=== PATIENT | female | born 1965 | race American Indian/Alaskan Native ===

== ENCOUNTER 2021-05-15 19:04 | Emergency (ER) | payer OTHER ==
[2021-05-15] MEDS ORDERED: ONDANSETRON 4 MG ODT TAB PO ONE (20:05)
[2021-05-15] MEDS ORDERED: ACETAMINOPHEN 500 MG TAB PO ONE (20:06)
[2021-05-15 20:17] LABS: Basophils % (Auto) 0.4 % (0.0-1.8); Eosinophils % (Auto) 0.3 % (0.0-4.3); Lymphocytes # (Auto) 0.4 K/mm3 (1.2-5.4); Lymphocytes % (Auto) 7.7 % (13.4-35.0); Monocytes # (Auto) 0.2 K/mm3 (0.0-0.8); Monocytes % (Auto) 3.3 % (0.0-7.3)
[2021-05-15 20:29] LABS: Bacteria,Urine 1+ /HPF (Negative); Bilirubin,Urine NEG (Negative); Blood,Urine NEG (Negative); Color,Urine Yellow (Yellow); Mucus,Urine 2+ /HPF; Urobilinogen,Urine < 2.0 mg/dL (<2.0)
[2021-05-15 20:39] LABS: Alanine Aminotransferase 18 units/L (7-56); BUN/Creatinine Ratio 12; Blood Urea Nitrogen 11 mg/dL (7-17); Calcium 10.1 mg/dL (8.4-10.2); Hemolysis Index 7
[2021-05-15 20:52] LABS: Hematocrit 39.6 % (30.3-42.9); Mean Corpuscular HGB Conc 33 % (30-34); Mean Corpuscular Volume 85 fl (79-97); Platelet Count 306 K/mm3 (140-440); Red Blood Count 4.63 M/mm3 (3.65-5.03); Red Cell Distribution Width 15.6 % (13.2-15.2)
[2021-05-15] MEDS ORDERED: KETOROLAC 30 MG/1 ML INJ IV ONE (23:21)
[2021-05-15] MEDS ORDERED: SODIUM CHLORIDE 0.9% 1000 ML 1,000 ML IV ONE (23:22)
--- NOTE | 2021-05-15 23:25 | Emergency Department Report ---
ED General Adult HPI - General Chief complaint: Nausea/Vomiting/Diarrhea Stated complaint: LT ARM PAINS Time Seen by Provider: 05/15/21 22:54 Source: patient Mode of arrival: Ambulatory Limitations: No Limitations - History of Present Illness Initial comments: 55-year-old [id number] female patient with history of hysterectomy presents to emergency department with complaints of left arm pain, abdominal pain, nausea, vomiting, and diarrhea starting today. No preceding fall, trauma, or injury. Pain is localized to the proximal left upper arm and the left lower quadrant. Pain in both locations is intermittent. Patient states her left arm is causing more discomfort than her abdomen. No history of similar symptoms. No recent surgeries. No history of venous thromboembolism. No current steroid or antibiotic use. Denies headache, neck pain, chest pain, shortness of breath, paresthesias, numbness, weakness, rectal bleeding, urinary symptoms. Denies all other complaints at this time. Severity scale (0 -10): 0 - Related Data Previous Rx's Medication Instructions Recorded Last Taken Type Ondansetron [Zofran Odt] 4 mg PO Q4H #20 tab.rapdis 05/16/21 Unknown Rx cephALEXin [Keflex] 500 mg PO TID 5 Days cap 05/16/21 Unknown Rx Allergies Allergy/AdvReac Type Severity Reaction Status Date / Time No Known Allergies Allergy Unverified 05/15/21 19:53 ED Review of Systems ROS: Stated complaint: LT ARM PAINS Other details as noted in HPI Other: GENERAL: Negative for fever, chills, weight change, anorexia, fatigue. ENT: Negative for ear pain, difficulty hearing, sore throat, nasal congestion, epistaxis. CARDIOVASCULAR: Negative for chest pain, palpitations, lower extremity swelling. PULMONARY: Negative for cough, dyspnea, wheezing, orthopnea, cyanosis. GASTROINTESTINAL: Positive for abdominal pain, nausea, vomiting, diarrhea. MUSCULOSKELETAL: Positive for left arm pain. NEUROLOGICAL: Negative for headache, seizure, syncope, paresthesias, weakness. INTEGUMENTARY: Negative for erythema, rash, diaphoresis, laceration, ecchymosis. HEMATOLOGICAL: Negative for hemoptysis, hematemesis, hematochezia, hematuria. PSYCHIATRIC: Negative for hallucinations, suicidal ideation, homicidal ideation, anxiety, depression. ED Past Medical Hx - Past Medical History Previous Medical History?: No - Surgical History Past Surgical History?: Yes Additional Surgical History: hysterectomy - Medications Home Medications: Home Medications Medication Instructions Recorded Confirmed Last Taken Type Ondansetron [Zofran Odt] 4 mg PO Q4H #20 tab.rapdis 05/16/21 Unknown Rx cephALEXin [Keflex] 500 mg PO TID 5 Days cap 05/16/21 Unknown Rx ED Physical Exam - General Limitations: No Limitations - Other Other exam information: General: Awake and alert. No acute distress. Head: Atraumatic, normocephalic. Eyes: EOMI. Pupils are equal and round. Normal sclera and conjunctiva. ENT: Oral mucosa is moist. Normal pharyngeal exam. Neck: Supple. No lymphadenopathy. Pulmonary: No respiratory distress. Clear to auscultation bilaterally. Cardiac: Tachycardic. Pulses are palpable and equal bilaterally. No lower extremity cyanosis or edema. Skin: Warm and dry. Minimal erythema noted to the proximal left arm with mild tenderness. No appreciable warmth. No crepitus. Pain is appropriately proportional to exam findings. Abdomen: Soft, non-protuberant. Left lower quadrant tenderness without guarding, rigidity, or rebound. Bowel sounds are normal. No organomegaly or masses noted. Back: Normal alignment. No CVA tenderness. Extremities: Symmetrical. Full range of motion intact. Neurological: Alert and oriented, appropriately interactive, no focal deficits. Psych: Cooperative. Appropriate mood and affect. Speech is evenly metered. Thoughts are logically construed. ED Course Vital Signs 05/15/21 05/15/21 05/16/21 19:50 21:14 00:40 Temperature 100.5 F H Pulse Rate 111 H Respiratory 18 16 20 Rate Blood Pressure 171/107 [Right] O2 Sat by Pulse 96 Oximetry 05/16/21 05/16/21 01:10 02:25 Temperature 98.2 F Pulse Rate 86 Respiratory 16 16 Rate Blood Pressure 142/95 [Right] O2 Sat by Pulse 100 Oximetry ED Medical Decision Making - Lab Data Result diagrams: 05/15/21 20:03 05/15/21 20:03 - Radiology Data [facility] [address] [place] [address] Cat Scan Report Signed Patient: MOIRA MARQUIS MR #: [id number] : 1965 Acct:[id number] Age/Sex: 55 / F ADM Date: 05/15/21 Loc: ED Attending Dr: Ordering Physician: SSISY CHOU Date of Service: 05/15/21 Procedure(s): CT abdomen pelvis w con Accession Number(s): [id number] cc: SISSY CHOU CT ABDOMEN AND PELVIS WITH IV CONTRAST INDICATION: Left lower quadrant abd pain/Nausea/Vomiting/Fever/Tachycardia. COMPARISON: None available. TECHNIQUE: Axial CT images were obtained through the abdomen and pelvis after 100 mL IV contrast. All CT scans at this location are performed using CT dose reduction for ALARA by means of automated exposure control. FINDINGS -- ABDOMEN: Lung Bases: No acute abnormality. Liver: Normal. Gallbladder: Normal. Bile Ducts: Normal. Pancreas: Normal. Spleen: Normal. Adrenals: Normal. Right Kidney and Proximal Ureter: Normal. Left Kidney and Proximal Ureter: Normal. Stomach and Bowel: Mild fluid distention of several small bowel loops with some increased mucosal enhancement.. Lymph Nodes: No significant adenopathy. Aorta: No significant abnormality. IVC: Normal. Additional Findings: None. FINDINGS -- PELVIS: Urinary Bladder and Distal Ureters: Normal. Reproductive Organs: No acute abnormality. Partial hysterectomy. Appendix: Normal. Bowel: No acute abnormality. Free Fluid: None. Lymph Nodes: No significant adenopathy. Additional Findings: None. Skeletal System: No acute abnormality. IMPRESSION: Mild enteritis of the small bowel. Signer Name: Garry Sampson MD Signed: 05/16/2021 12:26 AM Workstation Name: [id number] Transcribed By: BC Dictated By: Garry Sampson MD Electronically Authenticated By: Garry Sampson MD Signed Date/Time: 05/16/21 002 DD/ 0024 TD/TT: - Medical Decision Making Differential diagnosis including but not limited to: bowel obstruction, bowel perforation, appendicitis, diverticulitis, volvulus, ileus, hernia, dehydration, electrode abnormality, hypoglycemia, sepsis, urinary tract infection On reevaluation, patient is stable and symptoms have improved. No further vomiting in the emergency department. She is resting comfortably. Repeat abdominal exam is benign. Labs are unremarkable. Fever and tachycardia resolved. CT of the abdomen/pelvis shows mild enteritis of the small bowel. Suspect patient's initial fever and tachycardia are attributable to nonpurulent cellulitis of the proximal left upper extremity. No clinical indication for further diagnostic work-up on an emergent basis at this time. Patient will be discharged home with Keflex per current IDSA guidelines as well as appropriate symptomatic treatment. Patient expressed understanding and is agreeable to plan of care, agrees to follow-up with her primary care provider this week. Disease transmission precautions discussed. Strict return precautions provided. Repeat exam is unremarkable and benign. History, exam, diagnostic testing, and current condition do not suggest worrisome pathology to warrant further testing, continued ED treatment, admission, or surgical evaluation at this point. Given the low probability of a significant medical illness, it would be more likely to result in harm than benefit to perform further testing at this stage. Discussed findings, presumptive diagnosis, need for follow-up and specific signs/symptoms that should prompt immediate return to the emergency department. Instructions were explained in detail to the patient in addition to giving written discharge information. Patient expressed understanding and was given the opportunity to as k questions, all of which were satisfactorily answered prior to discharge home. Critical care attestation.: If time is entered above; I have spent that time in minutes in the direct care of this critically ill patient, excluding procedure time. ED Disposition Clinical Impression: Cellulitis of left upper arm, Vomiting and diarrhea Disposition: - TO HOME OR SELFCARE Is pt being admited?: No Does the pt Need Aspirin: No Condition: Stable Instructions: Cellulitis, Adult, [id number] Additional Instructions: Take Zofran as directed for nausea/vomiting. Take Keflex with food as directed. Increase your dietary intake of probiotic rich foods while taking this medication. Rest. Drink plenty of fluids. Wash hands frequently to prevent disease transmission. Do not share food or drinks with others. Apply warm compresses to the left upper arm as needed. Follow-up with your primary care provider this week. Call tomorrow to schedule an appointment. Return to the emergency department immediately for new or worsening symptoms. Prescriptions: cephALEXin [Keflex] 500 mg PO TID 5 Days cap Ondansetron [Zofran Odt] 4 mg PO Q4H #20 tab.rapdis Referrals: KAYLA LIMA MD [Referring] - 3-5 Days Forms: Work/School Release Form(ED) Time of Disposition: 00:45
--- NOTE | 2021-05-16 00:31 | Cat Scan Report ---
CT ABDOMEN AND PELVIS WITH IV CONTRAST INDICATION: Left lower quadrant abd pain/Nausea/Vomiting/Fever/Tachycardia. COMPARISON: None available. TECHNIQUE: Axial CT images were obtained through the abdomen and pelvis after 100 mL IV contrast. All CT scans a t this location are performed using CT dose reduction for ALARA by means of automated exposure contro l. FINDINGS -- ABDOMEN: Lung Bases: No acute abnormality. Liver: Normal. Gallbladder: Normal. Bile Ducts: Normal. Pancreas: Normal. Spleen: Normal. Adrenals: Normal. Right Kidney and Proximal Ureter: Normal. Left Kidney and Proximal Ureter: Normal. Stomach and Bowel: Mild fluid distention of several small bowel loops with some increased mucosal enh ancement.. Lymph Nodes: No significant adenopathy. Aorta: No significant abnormality. IVC: Normal. Additional Findings: None. FINDINGS -- PELVIS: Urinary Bladder and Distal Ureters: Normal. Reproductive Organs: No acute abnormality. Partial hysterectomy. Appendix: Normal. Bowel: No acute abnormality. Free Fluid: None. Lymph Nodes: No significant adenopathy. Additional Findings: None. Skeletal System: No acute abnormality. IMPRESSION: Mild enteritis of the small bowel. Signer Name: Garry Sampson MD Signed: 05/16/2021 12:26 AM Workstation Name: [id number]
[2021-05-16 03:23] VITALS: BP 142/95
== END 2021-05-16 02:25 | disposition home or self-care (01) ==
LOC: ED 19:04
DX: L03.114 Cellulitis of left upper limb (principal); R19.7 Diarrhea, unspecified; R11.10 Vomiting, unspecified; Z90.710 Acquired absence of both cervix and uterus; Z79.899 Other long term (current) drug therapy
CPT/HCPCS: 36415; 74177; 80053; 81001; 85025; 96361; 96374; 99284; J1885; J7030; Q9967; Q0162